=== PATIENT | male | born 1985 | race Caucasian/White ===

== ENCOUNTER 2017-02-05 09:54 | Emergency (ER) | payer MEDICAID ==
[~2017-02-05] VITALS: Wt 84.1 kg
[2017-02-05] MEDS ORDERED: HYDROCODONE/APAP (5/325) TAB PO ONE (10:30)
[2017-02-05 10:35] LABS: URINE BLOOD (Dip) POC Trace-intact (NEGATIVE)
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
--- NOTE | 2017-02-05 11:19 | RADRPT ---
PROCEDURE: XR Chest 1 View. CLINICAL INDICATION: Shortness of breath. TECHNIQUE: AP view of the chest was obtained. COMPARISON: None. FINDINGS: The cardiomediastinal silhouette is within normal limits. No consolidations are identified. No pneu mothorax is seen. Osseous structures are intact. IMPRESSION: No visualized active disease. RPTAT: AA .Max Morgan MD, Date Time Electronically viewed and signed by .Max Morgan MD, on 02/05/2017 11:19 .P/
[2017-02-05] MEDS ORDERED: NAPR-260 PO (11:26)
[2017-02-05] MEDS ORDERED: CYCL-319 PO (11:26)
[2017-02-05] MEDS ORDERED: HYDR-906 PO (11:26)
== END 2017-02-05 11:44 | disposition home or self-care (01) ==
LOC: FTE 09:54
DX: M54.6 Pain in thoracic spine (principal); F17.210 Nicotine dependence, cigarettes, uncomplicated
CPT/HCPCS: 71010; 81003; Z7502; Z7610